=== PATIENT | male | born 1935 | race Caucasian/White ===

== ENCOUNTER 2018-03-11 16:26 | Inpatient (IN) | payer MEDICARE ==
[~2018-03-11] VITALS: Ht 180.3 cm; Wt 83.0 kg
[~2018-03-11 16:26] MED LIST: ASA81 MG PO; COUMADIN3 MG PO; LOVENOX60 MG/0.6 SC; PLAVIX75 MG PO; PRAVASTATIN SOD40 MG PO; Z.0.ASPIRIN CHEW81 M; Z.0.CORDARONE200 MG PO; Z.0.LASIX40 MG PO; Z.0.METOPROLOL TART5 PO; Z.0.PRINIVIL5 MG PO; Z.0.WARFARIN SODIUM5 PO; Z.0.XARELTO20 MG
[2018-03-11 16:50] VITALS: BP 119/81
--- NOTE | 2018-03-11 17:53 | Diagnostic Imaging Report ---
EXAMINATION: CHEST SINGLE (PORTABLE) INDICATION: Congestive heart failure. Shortness of breath. COMPARISON: None FINDINGS: TUBES and LINES: None. LUNGS: Left lower and lateral lung opacity could be due to a combination of pneumonia, atelectasis and pleural effusion. PLEURA: No pneumothorax. HEART AND MEDIASTINUM: Prominent heart size with pulmonary vascular congestion. BONES AND SOFT TISSUES: No acute osseous lesion. Soft tissues are unremarkable. UPPER ABDOMEN: No free air under the diaphragm. IMPRESSION: Left lower and lateral lung opacity could be due to a combination of pneumonia, atelectasis and pleural effusion. Prominent heart size with pulmonary vascular congestion. Signed by: Dr. Srikanth Balderrama M.D. on 03/11/2018 5:49 PM
[2018-03-11 18:02] LABS: BASOPHILS % 0.6 % (0.0-1.0); EOSINOPHILS # (AUTO) 0.1 (0.0-0.4); EOSINOPHILS % 0.9 % (0.0-6.0); HEMATOCRIT 27.2 % (38.2-49.6); HEMOGLOBIN 7.5 g/dL (14.0-18.0); LYMPHOCYTES # (AUTO) 1.1 (1.0-3.2); LYMPHOCYTES % 15.4 % (18.0-39.1); MEAN CORPUSCULAR HEMOGLOBIN 16.7 pg (28-32); MEAN CORPUSCULAR HGB CONC 27.6 g/dL (31-35); MEAN CORPUSCULAR VOLUME 60.6 fL (81-99); MONOCYTES # (AUTO) 0.6 (0.2-0.8); MONOCYTES % 9.1 % (4.4-11.3); NEUTROPHILS % 73.4 % (38.7-80.0); PLATELET COUNT 264 x10e3/uL (140-360); RED BLOOD COUNT 4.49 x10e6/uL (4.3-5.7); RED CELL DISTRIBUTION WIDTH 21.7 % (11.7-14.4)
[2018-03-11] MEDS ORDERED: ASPIRIN81 MG PO (18:06)
[2018-03-11 18:08] LABS: BILIRUBIN,URINE NEGATIVE (NEGATIVE); CLARITY,URINE CLEAR (CLEAR); COLOR,URINE YELLOW (YELLOW); KETONES,URINE NEGATIVE (NEGATIVE); LEUKOCYTE ESTERASE ,URINE NEGATIVE (NEGATIVE); NITRITE,URINE NEGATIVE (NEGATIVE); PROTEIN,URINE DIPSTICK TRACE (NEGATIVE); URINE UROBILINOGEN 0.2 mg/dL (0.2 - 1)
[2018-03-11 18:20] LABS: BACTERIA,URINE FEW /HPF
[2018-03-11 18:20] LABS: INR 3.31; PROTHROMBIN TIME 35.9 seconds (11.9-14.5)
[2018-03-11 18:23] LABS: ALBUMIN 3.7 g/dL (3.5-5.0); ALBUMIN/GLOBULIN RATIO 1.3 (0.8-2.0); ANION GAP 16.2 mmol/L (8-16); CALCIUM 8.5 mg/dL (8.4-10.2); CREATININE, SERUM 1.29 mg/dL (0.72-1.25); POTASSIUM 4.2 mmol/L (3.5-5.1)
[2018-03-11 18:44] LABS: CREATINE KINASE MB 1.3 ng/mL (0-5.0); FREE T4 (FREE THYROXINE) 0.88 ng/dL (0.9-1.8); THYROID STIMULATING HORMONE 4.931 uIU/mL (0.350-4.940)
[2018-03-11] MEDS ORDERED: SODIUM CHLORIDE 0.9% 250ML 250 ML IV ONE (19:30)
[2018-03-11 20:00] VITALS: BP 116/75
[2018-03-12] VITALS (7 sets, daily range): BP systolic 103–134; BP diastolic 62–97
[2018-03-12] MEDS: FUROSEMIDE INJ 10 MG/ML 2 ML VIAL IV PRN ×2 (01:35→05:15)
[2018-03-12] MEDS ORDERED: SODIUM CHLORIDE 0.9% 250ML 250 ML ONE ×2 (01:45→12:17)
[2018-03-12] MEDS ORDERED: ASPIRIN 81 MG CHEW TAB PO SCH (09:00)
[2018-03-12] MEDS ORDERED: CLOPIDOGREL BISULFATE 75 MG TAB PO SCH (09:00)
[2018-03-12] MEDS: FUROSEMIDE 40 MG TAB PO SCH (09:06)
[2018-03-12] MEDS: METOPROLOL TARTRATE 50 MG TAB PO SCH ×2 (09:06→17:53)
[2018-03-12 10:00] LABS: BASOPHILS # (AUTO) 0.1 (0.0-0.1); BASOPHILS % 0.6 % (0.0-1.0); EOSINOPHILS # (AUTO) 0.1 (0.0-0.4); EOSINOPHILS % 1.4 % (0.0-6.0); HEMATOCRIT 33.4 % (38.2-49.6); HEMOGLOBIN 9.6 g/dL (14.0-18.0); LYMPHOCYTES # (AUTO) 1.2 (1.0-3.2); LYMPHOCYTES % 14.6 % (18.0-39.1); MEAN CORPUSCULAR HEMOGLOBIN 18.6 pg (28-32); MEAN CORPUSCULAR HGB CONC 28.7 g/dL (31-35); MEAN CORPUSCULAR VOLUME 64.6 fL (81-99); MONOCYTES # (AUTO) 0.7 (0.2-0.8); MONOCYTES % 8.3 % (4.4-11.3); NEUTROPHILS # (AUTO) 5.9 (2.1-6.9); NEUTROPHILS % 74.6 % (38.7-80.0); PLATELET COUNT 235 x10e3/uL (140-360); RED BLOOD COUNT 5.17 x10e6/uL (4.3-5.7); RED CELL DISTRIBUTION WIDTH 24.7 % (11.7-14.4)
[2018-03-12 10:19] LABS: ANION GAP 11.4 mmol/L (8-16); CALCIUM 8.1 mg/dL (8.4-10.2); CREATININE, SERUM 1.21 mg/dL (0.72-1.25); MAGNESIUM 1.9 MG/DL (1.3-2.1); POTASSIUM 3.4 mmol/L (3.5-5.1)
[2018-03-12] MEDS ORDERED: POTASSIUM CHLORIDE 20 MEQ TAB CR PO NR (12:00)
[2018-03-12 12:31] LABS: HYPOCHROMASIA MODERATE; PLATELET ESTIMATE ADEQUATE; PLATELET MORPHOLOGY COMMENT NORMAL
[2018-03-12 12:32] LABS: ANISOCYTOSIS MODERATE; TARGET CELLS FEW
[2018-03-12] MEDS: AZITHROMYCIN 250MG/NS 100 ML 100 ML IV SCH (12:42)
[2018-03-12] MEDS: CEFTRIAXONE SOD 1 GM VIAL IV SCH (12:42)
--- NOTE | 2018-03-12 16:26 | Consultation ---
DATE OF CONSULTATION: March 12, 2018 CARDIOLOGY CONSULTATION REASON FOR CONSULTATION: Heart failure. HISTORY OF PRESENT ILLNESS: This is an 83-year-old man who follows with my colleague, Dr. Khan, who has a history of former tobacco use, atrial fibrillation on anticoagulation, peripheral arterial disease, status post prior intervention, and hypertension who presented to the outpatient setting and reported fatigue, shortness of breath, and feeling unwell. Labs done indicated significant anemia, and he was transferred to the emergency department for admission. Upon arrival to the emergency department, he was hemodynamically stable. He was initiated on antibiotics for possible pneumonia, diuretics and received a blood transfusion. The patient does note that with wiping after a bowel movement he has noted blood on the toilet paper. He denies any chest pain currently. His shortness of breath is still present, however, has improved. REVIEW OF SYSTEMS: A 12-point review of systems was conducted and is negative other than as stated above in the HPI. PAST MEDICAL HISTORY: Hypertension, atrial fibrillation, anemia, former tobacco use, peripheral arterial disease. PAST SURGICAL HISTORY: Cholecystectomy, tonsillectomy, stomach surgery. PAST FAMILY HISTORY: No premature coronary artery disease or sudden cardiac . SOCIAL HISTORY: No current tobacco use. Former smoker. Denies any current illicit use or alcohol use. ALLERGIES: NO KNOWN DRUG ALLERGIES. MEDICATIONS: See medication reconciliation form. PHYSICAL EXAMINATION VITAL SIGNS: Temperature 96.2, heart rate 80, respirations 18 and blood pressure 118/97, oxygen saturation is 96% on 2 liters nasal cannula. GENERAL: He is an elderly male lying comfortably in bed. HEAD: Normocephalic, atraumatic. EYES: The extraocular muscles are intact. Conjunctiva is clear. NECK: No JVD. There is a bruit. CARDIOVASCULAR: Irregularly irregular, normal rates. Mild systolic murmur heard best at the left lower sternal border. LUNGS: Decreased breath sounds with scattered wheezes and rhonchi. ABDOMEN: Soft, nontender. EXTREMITIES: No edema. NEUROLOGIC: No focal deficits noted. PSYCHIATRIC: Normal mood and affect. LABORATORY DATA: Reviewed and notable for a hemoglobin of 7.5, which is now 9.6 after transfusion. His creatinine is 1.21. Sodium is 132, potassium 3.4, troponin is 0.019. Creatinine kinase is 365. CK-MB is 1.3. A 2D echocardiogram showed normal left ventricular size and overall preserved left ventricular function with an estimated ejection fraction of 55%. TELEMETRY: Revealed atrial fibrillation with controlled ventricular response. IMPRESSION AND RECOMMENDATIONS: 1. Abdwh-qe-uuaicxp diastolic heart failure. The patient does appear mildly volume overloaded and with shortness of breath. Continue Lasix for diuresis. A 2D echocardiogram showed overall normal left ventricular systolic function. 2. Acute anemia. This is likely related to gastrointestinal losses. The patient received blood transfusion. Defer other treatment modalities or diagnostic testing to primary and gastroenterology teams. 3. Atrial fibrillation. The patient has controlled ventricular response on metoprolol tartrate 50 mg b.i.d. His INR is 3.31. Continue to hold warfarin as this is supratherapeutic, and he is likely having gastrointestinal bleed. Thank you for the consultation. Will follow along with you. Job#: [id number]
[2018-03-12] MEDS ORDERED: WARFARIN SOD 3 MG TAB PO SCH (17:00)
[2018-03-12] MEDS ORDERED: NON-FORMULARY MEDICATION (Pravastatin Sodium 40 MG) PO SCH (21:00)
[2018-03-12] MEDS: PRAVASTATIN 20 MG TAB PO SCH (21:51)
[2018-03-13] VITALS (8 sets, daily range): BP systolic 106–131; BP diastolic 63–78
[2018-03-13 05:59] LABS: BASOPHILS # (AUTO) 0.1 (0.0-0.1); BASOPHILS % 0.7 % (0.0-1.0); EOSINOPHILS # (AUTO) 0.3 (0.0-0.4); EOSINOPHILS % 3.8 % (0.0-6.0); HEMATOCRIT 32.4 % (38.2-49.6); HEMOGLOBIN 9.3 g/dL (14.0-18.0); LYMPHOCYTES # (AUTO) 1.4 (1.0-3.2); LYMPHOCYTES % 15.8 % (18.0-39.1); MEAN CORPUSCULAR HEMOGLOBIN 18.6 pg (28-32); MEAN CORPUSCULAR HGB CONC 28.7 g/dL (31-35); MEAN CORPUSCULAR VOLUME 64.7 fL (81-99); MONOCYTES # (AUTO) 0.9 (0.2-0.8); MONOCYTES % 10.3 % (4.4-11.3); NEUTROPHILS % 69.1 % (38.7-80.0); PLATELET COUNT 221 x10e3/uL (140-360); RED BLOOD COUNT 5.01 x10e6/uL (4.3-5.7)
[2018-03-13 06:19] LABS: ANION GAP 12.6 mmol/L (8-16); BLOOD UREA NITROGEN 22 mg/dL (7-26); BUN/CREATININE RATIO 19 (6-25); CALCIUM 8.9 mg/dL (8.4-10.2); CARBON DIOXIDE 32 mmol/L (22-29); CHLORIDE 98 mmol/L (98-107); CREATININE, SERUM 1.15 mg/dL (0.72-1.25); EST GLOMERULAR FILTRATION RATE > 60 ML/MIN (60-); GLUCOSE 98 mg/dL (74-118); POTASSIUM 3.6 mmol/L (3.5-5.1); SODIUM 139 mmol/L (136-145)
[2018-03-13 06:22] LABS: INR 2.11; PROTHROMBIN TIME 25.3 seconds (11.9-14.5)
[2018-03-13 07:13] LABS: LARGE PLATELETS FEW; PLATELET ESTIMATE ADEQUATE
[2018-03-13 07:14] LABS: ANISOCYTOSIS SLIGHT; HYPOCHROMASIA MODERATE; SCHISTOCYTES FEW; TARGET CELLS FEW
[2018-03-13 07:17] LABS: FERRITIN 16.09 ng/mL (21.81-274.66)
[2018-03-13 07:34] LABS: FOLATE 10.7 ng/mL (7.0-15.4)
[2018-03-13 07:51] LABS: RBC MORPHOLOGY COMMENT NORMAL
[2018-03-13] MEDS: FUROSEMIDE 40 MG TAB PO SCH (09:28)
[2018-03-13] MEDS: METOPROLOL TARTRATE 50 MG TAB PO SCH ×2 (09:29→17:52)
[2018-03-13] MEDS: CEFTRIAXONE SOD 1 GM VIAL IV SCH (13:00)
[2018-03-13] MEDS: AZITHROMYCIN 250MG/NS 100 ML 100 ML IV SCH (14:06)
--- NOTE | 2018-03-13 19:20 | Progress Note ---
DATE: CARDIOLOGY PROGRESS NOTE SUBJECTIVE: Patient feels better. No further GI bleeding. No chest pain or shortness of breath. Gastroenterology is yet to evaluate the patient. OBJECTIVE VITAL SIGNS: Temperature is 97.0, heart rate is 103, respirations are 20, blood pressure is 111/71, oxygen saturation is 96% on 2 liters nasal cannula. GENERAL: He is a normal-appearing man, lying comfortably in bed, in no apparent distress. HEAD: Normocephalic, atraumatic. NECK: No JVD. There is bruit over the right carotid area. CARDIOVASCULAR: Irregularly irregular. Mild systolic murmur heard best at the left lower sternal border. LUNGS: Diminished breath sounds at bilateral bases with scattered wheezes and rhonchi. ABDOMEN: Soft, nontender, nondistended. EXTREMITIES: No edema. NEUROLOGIC: No focal deficits noted. LABORATORY DATA: Reviewed. Hemoglobin is increased to 9.3. Creatinine is 1.15. TELEMETRY: Monitoring revealed atrial fibrillation with controlled ventricular response. IMPRESSION/RECOMMENDATIONS 1. Ebhda-cm-ubwrgeu diastolic heart failure. A 2D echocardiogram showed normal left ventricular systolic function. Continue Lasix for diuresis. There is no evidence of acute coronary syndrome. He is asymptomatic and is feeling much better. 2. Atrial fibrillation. The patient has mostly controlled ventricular rates. Can increase metoprolol as tolerated. No anticoagulation at this point in time giving gastrointestinal bleed. 3. Gastrointestinal bleed. Treatment provided per primary team. The hemoglobin is stable. Please consult gastroenterology for further workup. Job#: [id number] BELÉN
[2018-03-13] MEDS: PRAVASTATIN 20 MG TAB PO SCH (20:39)
[2018-03-14] VITALS (8 sets, daily range): BP systolic 109–128; BP diastolic 55–72
[2018-03-14 06:14] LABS: INR 1.68; PROTHROMBIN TIME 21.1 seconds (11.9-14.5)
[2018-03-14] MEDS: FUROSEMIDE 40 MG TAB PO SCH (09:12)
[2018-03-14] MEDS: IRON SUCROSE 100 MG in SODIUM CHLORIDE 0.9% 100 ML 100 ML IV SCH (09:12)
[2018-03-14] MEDS: METOPROLOL TARTRATE 50 MG TAB PO SCH ×2 (09:12→17:22)
[2018-03-14] MEDS: AZITHROMYCIN 250MG/NS 100 ML 100 ML IV SCH (12:51)
[2018-03-14] MEDS: CEFTRIAXONE SOD 1 GM VIAL IV SCH (12:51)
--- NOTE | 2018-03-14 15:48 | Progress Note ---
DATE: March 14, 2018 CARDIOLOGY PROGRESS NOTE SUBJECTIVE: Mr. Carvalho feels much better. He denies any chest pain or shortness of breath. He is able to lie flat in bed. OBJECTIVE VITAL SIGNS: Afebrile. Heart rate 79, blood pressure 111/55. CARDIOVASCULAR: Regular rhythm. Systolic murmur. LUNGS: Clear to auscultation bilaterally. ABDOMEN: Soft. LABS: Serum creatinine is normal. TELEMETRY: Shows atrial fibrillation. ASSESSMENT 1. Alvyh-ok-pgkwkqy diastolic heart failure. 2. Atrial fibrillation. 3. Gastrointestinal bleeding. RECOMMENDATIONS: Current medical regimen is optimal and should be continued. LV function is normal. Recommend endoscopy to evaluate GI cause of bleeding. Job#: [id number] LPA
[2018-03-14 16:29] LABS: BASOPHILS % 0.6 % (0.0-1.0); EOSINOPHILS # (AUTO) 0.3 (0.0-0.4); EOSINOPHILS % 4.5 % (0.0-6.0); HEMATOCRIT 32.2 % (38.2-49.6); LYMPHOCYTES % 13.9 % (18.0-39.1); MEAN CORPUSCULAR HEMOGLOBIN 18.5 pg (28-32); MEAN CORPUSCULAR VOLUME 66.3 fL (81-99); MONOCYTES # (AUTO) 0.9 (0.2-0.8); MONOCYTES % 12.5 % (4.4-11.3); NEUTROPHILS # (AUTO) 4.9 (2.1-6.9); NEUTROPHILS % 68.1 % (38.7-80.0); PLATELET COUNT 224 x10e3/uL (140-360); RED BLOOD COUNT 4.86 x10e6/uL (4.3-5.7); RED CELL DISTRIBUTION WIDTH 25.8 % (11.7-14.4)
--- NOTE | 2018-03-14 16:42 | Progress Note ---
DATE: INTERNAL MEDICINE PROGRESS NOTE ADDENDUM The patient is getting Zithromax 250 mg IV once a day, iron IV status post blood transfusion, furosemide 60 mg every morning, metoprolol 50 mg twice a day, Pravastatin 40 mg daily, ceftriaxone 1 gram IV once a day. The patient is going have an upper endoscopy once the INR is lower. Job#: [id number] LPA
--- NOTE | 2018-03-14 16:54 | Progress Note ---
DATE: INTERNAL MEDICINE PROGRESS NOTE SUBJECTIVE: Patient is doing well. PHYSICAL EXAM VITAL SIGNS: Blood pressure 111/55, temperature 96.6, heart rate 79 per minute, respiratory rate 20 per minute, and oxygen saturation 98%. HEART: Showed irregularly irregular heart rate. Normal S1 S2 sounds. LUNGS: Clear bilaterally. ABDOMEN: Soft. LABS: We had BMP; sodium 139, potassium 3.6, chloride 98, CO2 32, BUN 22, creatinine 1.15, glucose 98. On the CBC, white blood count 8.65, hemoglobin 9.3, hematocrit 32.4, platelet count 221, 000. PT 21.1, INR 1.68. AST 16, ALT 11, total bilirubin 0.9. Alkaline phosphatase 69. FINAL IMPRESSION 1. Iron deficiency anemia. 2. Lower pneumonia. 3. Chronic atrial fibrillation. 4. Acute anemia secondary to gastric bleed possible. 5. Chronic renal failure, type 2. 6. Possible gastrointestinal bleed. 7. Hypertension with chronic renal failure. Job#: [id number] ROVERTO
[2018-03-14 17:48] LABS: HYPOCHROMASIA MODERATE; MICROCYTOSIS MODERATE; POLYCHROMASIA FEW
[2018-03-14 17:49] LABS: ANISOCYTOSIS MODERATE; ELLIPTOCYTE, RBC SLIGHT; OVALOCYTES FEW; PLATELET ESTIMATE ADEQUATE; PLATELET MORPHOLOGY COMMENT NORMAL; RBC MORPHOLOGY COMMENT ABNORMAL; SCHISTOCYTES RARE
[2018-03-14] MEDS: PRAVASTATIN 20 MG TAB PO SCH (20:45)
[2018-03-15] VITALS (7 sets, daily range): BP systolic 111–138; BP diastolic 55–65
[2018-03-15] MEDS: IRON SUCROSE 100 MG in SODIUM CHLORIDE 0.9% 100 ML 100 ML IV SCH (04:37)
[2018-03-15] MEDS: METOPROLOL TARTRATE 50 MG TAB PO SCH ×2 (09:17→17:44)
[2018-03-15] MEDS: FUROSEMIDE 40 MG TAB PO SCH (09:17)
--- NOTE | 2018-03-15 11:46 | Progress Note ---
DATE: March 15, 2018 CARDIOLOGY PROGRESS NOTE SUBJECTIVE: Mr. Carvalho is asymptomatic. He is awaiting his endoscopy. PHYSICAL EXAMINATION VITAL SIGNS: Afebrile, heart rate 86, blood pressure 138/64, O2 sat is 97%. CARDIOVASCULAR: Regular rhythm. S3 gallop. LUNGS: Clear to auscultation bilaterally. LABS: Hemoglobin is stable at 9. Serum creatinine is normal. ASSESSMENT 1. Acute heart failure with gastrointestinal bleeding. 2. Atrial fibrillation. RECOMMENDATIONS: The patient is cleared for endoscopy from the cardiac standpoint. We do require him to re-initiate his anticoagulation with consideration for Watchman procedure in the future as an outpatient. Job#: [id number] SANDRA
[2018-03-15] MEDS: CEFTRIAXONE SOD 1 GM VIAL IV SCH (12:00)
[2018-03-15] MEDS: AZITHROMYCIN 250MG/NS 100 ML 100 ML IV SCH (12:30)
--- NOTE | 2018-03-15 14:01 | Progress Note ---
DATE: INTERNAL MEDICINE PROGRESS NOTE SUBJECTIVE: Patient is doing well. OBJECTIVE VITAL SIGNS: Blood pressure 116/59, temperature 95.6, heart rate 90 per minute, respiratory rate 18 per minute, oxygen saturation 96%. HEART: Shows irregularly irregular heart rate. Normal S1, S2 sounds. LUNGS: Clear bilaterally. ABDOMEN: Soft. On the BMP; sodium 139, potassium 3.6, chloride 98, CO2 32, BUN 22, creatinine 1.15, glucose 98. On CBC, white blood count 7.12, hemoglobin 9.0, hematocrit 32.2, platelet count 224,000. PT 21.1, INR 1.68. AST 16, ALT 11, total bilirubin 0.9, alkaline phosphatase 69. FINAL IMPRESSION 1. Lobar pneumonia. 2. Chronic atrial fibrillation. 3. Acute anemia. 4. Chronic renal insufficiency, stage 2 to 3. 5. Gastric bleed. 6. Hypertension with chronic renal failure. PLAN OF TREATMENT: Possible endoscopy tomorrow pending on the PT and INR reports. Continue Zithromax 250 mg daily. He received iron IV. Continue with furosemide 60 mg daily, metoprolol 50 mg twice a day, pravastatin 40 mg daily, ceftriaxone 1 g IV once a day. Job#: [id number] SUB
[2018-03-15] MEDS: PRAVASTATIN 20 MG TAB PO SCH (19:52)
[2018-03-16] VITALS (8 sets, daily range): BP systolic 105–137; BP diastolic 60–91
[2018-03-16] MEDS: IRON SUCROSE 100 MG in SODIUM CHLORIDE 0.9% 100 ML 100 ML IV SCH (04:20)
[2018-03-16 05:42] LABS: BASOPHILS # (AUTO) 0.1 (0.0-0.1); BASOPHILS % 0.9 % (0.0-1.0); EOSINOPHILS # (AUTO) 0.5 (0.0-0.4); EOSINOPHILS % 6.9 % (0.0-6.0); HEMATOCRIT 32.6 % (38.2-49.6); LYMPHOCYTES # (AUTO) 1.2 (1.0-3.2); LYMPHOCYTES % 17.7 % (18.0-39.1); MEAN CORPUSCULAR HEMOGLOBIN 18.4 pg (28-32); MEAN CORPUSCULAR HGB CONC 27.6 g/dL (31-35); MEAN CORPUSCULAR VOLUME 66.8 fL (81-99); MONOCYTES # (AUTO) 0.7 (0.2-0.8); MONOCYTES % 9.9 % (4.4-11.3); NEUTROPHILS # (AUTO) 4.2 (2.1-6.9); NEUTROPHILS % 64.3 % (38.7-80.0); PLATELET COUNT 204 x10e3/uL (140-360); RED BLOOD COUNT 4.88 x10e6/uL (4.3-5.7); RED CELL DISTRIBUTION WIDTH 26.7 % (11.7-14.4)
[2018-03-16 06:24] LABS: INR 1.16; PROTHROMBIN TIME 15.8 seconds (11.9-14.5)
[2018-03-16 07:53] LABS: ANISOCYTOSIS MODERATE; EOSINOPHILS % (MANUAL) 9 % (0-7); HYPOCHROMASIA MODERATE; LYMPHOCYTES % (MANUAL) 24 % (19-48); MONOCYTES % (MANUAL) 9 % (3.4-9.0); NEUTROPHILS % (MANUAL) 57 % (40-74); POIKILOCYTOSIS SLIGHT
[2018-03-16 07:54] LABS: PLATELET ESTIMATE ADEQUATE; PLATELET MORPHOLOGY COMMENT NORMAL; RBC MORPHOLOGY COMMENT ABNORMAL
[2018-03-16] MEDS: METOPROLOL TARTRATE 50 MG TAB PO SCH ×2 (09:00→17:13)
[2018-03-16] MEDS ORDERED: PANTOPRAZOLE 40 MG 10ML VIAL IV STA (12:12)
[2018-03-16] MEDS: PANTOPRAZOLE 40 MG 10ML VIAL IV SCH (12:15)
--- NOTE | 2018-03-16 12:54 | Operative Report ---
DATE OF PROCEDURE: March 16, 2018 REFERRING PHYSICIAN: Dr. Max Bal. PROCEDURE PERFORMED: Esophagogastroduodenoscopy with injection therapy, fulguration and hemoclipping of a bleeding spot just proximal to a Billroth II anastomosis. INDICATIONS FOR ESOPHAGOGASTRODUODENOSCOPY: Iron deficiency anemia. MEDICATION: Patient was done under MAC. Please see anesthesiologist's note. PROCEDURE: With the patient in the left lateral decubitus position, the flexible fiberoptic Olympus gastroscope was introduced into the esophagus under direct visualization without any difficulty. The esophagus appeared to be within normal limits. The scope was then advanced with ease into the stomach, traversing a small hiatal hernia. There were some coffee-ground stains noted in the stomach. The patient appears to have had a Billroth II anastomosis that appeared intact. There was an actively bleeding spot, possibly an AVM, just proximal to the anastomosis, and that was injected with 1:10,000 epinephrine, fulgurated with a size 10-Maltese Gold Probe and hemoclipped times 2 with good hemostasis. The anastomosis was traversed with ease, and both loops were patent. The scope was then withdrawn back into the stomach and retroflexed, and the mucosa overlying the fundus as well as the cardia appeared to be within normal limits. The scope was then straightened out. It was subsequently withdrawn. Patient tolerated the procedure well. IMPRESSION: 1. Normal esophagus. 2. Small hiatal hernia. 3. Status post Billroth II with intact anastomosis and patent efferent and afferent loops. 4. Actively bleeding spot, possibly an arteriovenous malformation, just proximal to the anastomosis, and that was injected with 1:10,000 epinephrine, fulgurated with size 10-Maltese Gold Probe and hemoclipped times 2 with good hemostasis. Patient tolerated the procedure well. PLAN: 1. Follow H&H. 2. Initiate PPI therapy. 3. Start Carafate 1 gram p.o. a.c. t.i.d. and nightly. Job#: [id number] EV cc:MD SAMMIE BARNETT D.O.
[2018-03-16] MEDS: FUROSEMIDE 40 MG TAB PO SCH (12:59)
[2018-03-16] MEDS: CEFTRIAXONE SOD 1 GM VIAL IV SCH (12:59)
[2018-03-16] MEDS: AZITHROMYCIN 250MG/NS 100 ML 100 ML IV SCH (13:00)
--- NOTE | 2018-03-16 15:33 | Progress Note ---
DATE: CARDIOLOGY PROGRESS NOTE SUBJECTIVE: The patient feels overall well in preparation for endoscopy. No other symptoms or events. OBJECTIVE VITAL SIGNS: Temperature 96.8, heart rate 99, respirations 20, blood pressure 121/91, oxygen saturation 96% on 2 L nasal cannula. GENERAL: This is a well-appearing, elderly man sleeping comfortably. HEAD: Normocephalic. CARDIOVASCULAR: Regular rhythm. Normal S1 and S2. No murmurs. LUNGS: Clear to auscultation. ABDOMEN: Soft, nontender and nondistended. LABORATORY DATA: Reviewed and shows creatinine 9, creatinine 1.15. ASSESSMENT 1. Acute diastolic heart failure. 2. Gastrointestinal bleeding. 3. Atrial fibrillation. RECOMMENDATIONS: The patient is hemodynamically stable and currently asymptomatic. Continue current cardiovascular medications. Endoscopy per gastroenterology today. Will continue to monitor closely. Will reinitiate anticoagulation and possible consideration for Watchman procedure as an outpatient. Job#: [id number]
[2018-03-16] MEDS: SUCRALFATE 1 GM TAB PO SCH ×2 (17:13→20:00)
[2018-03-16] MEDS ORDERED: EPINEPHRINE HCL INJ 1 MG/ML AMP ONE (19:18)
[2018-03-16] MEDS ORDERED: PROPOFOL IV EMULSION 10 MG/ML 50 ML VIAL ONE (19:18)
[2018-03-16] MEDS ORDERED: EPHEDRINE SULFATE INJ 50 MG/10 ML SYR ONE (19:18)
[2018-03-16] MEDS: PRAVASTATIN 20 MG TAB PO SCH (20:00)
[2018-03-17] VITALS: BP 111/69
[2018-03-17] MEDS: PANTOPRAZOLE 40 MG 10ML VIAL IV SCH ×2 (00:15→13:43)
[2018-03-17 04:00] VITALS: BP 120/72
[2018-03-17] MEDS: IRON SUCROSE 100 MG in SODIUM CHLORIDE 0.9% 100 ML 100 ML IV SCH (05:15)
[2018-03-17 05:37] LABS: BASOPHILS # (AUTO) 0.1 (0.0-0.1); BASOPHILS % 0.8 % (0.0-1.0); EOSINOPHILS # (AUTO) 0.5 (0.0-0.4); EOSINOPHILS % 6.1 % (0.0-6.0); HEMATOCRIT 34.5 % (38.2-49.6); HEMOGLOBIN 9.5 g/dL (14.0-18.0); LYMPHOCYTES # (AUTO) 1.2 (1.0-3.2); LYMPHOCYTES % 16.9 % (18.0-39.1); MEAN CORPUSCULAR HEMOGLOBIN 18.8 pg (28-32); MEAN CORPUSCULAR HGB CONC 27.5 g/dL (31-35); MEAN CORPUSCULAR VOLUME 68.2 fL (81-99); MONOCYTES # (AUTO) 0.7 (0.2-0.8); MONOCYTES % 9.7 % (4.4-11.3); NEUTROPHILS # (AUTO) 4.8 (2.1-6.9); NEUTROPHILS % 65.8 % (38.7-80.0); PLATELET COUNT 207 x10e3/uL (140-360); RED BLOOD COUNT 5.06 x10e6/uL (4.3-5.7); RED CELL DISTRIBUTION WIDTH 27.6 % (11.7-14.4)
[2018-03-17 06:00] LABS: ANION GAP 8.4 mmol/L (8-16); CALCIUM 8.6 mg/dL (8.4-10.2); CREATININE, SERUM 1.18 mg/dL (0.72-1.25); POTASSIUM 4.4 mmol/L (3.5-5.1)
[2018-03-17] MEDS: SUCRALFATE 1 GM TAB PO SCH ×4 (06:38→20:42)
[2018-03-17 08:16] VITALS: BP 119/76
[2018-03-17 08:35] VITALS: BP 119/76
[2018-03-17] MEDS: METOPROLOL TARTRATE 50 MG TAB PO SCH ×2 (08:46→17:59)
[2018-03-17] MEDS: FUROSEMIDE 40 MG TAB PO SCH (08:46)
[2018-03-17 09:28] LABS: PLATELET ESTIMATE ADEQUATE
[2018-03-17 09:29] LABS: ACANTHOCYTES FEW; HYPOCHROMASIA SLIGHT; POIKILOCYTOSIS SLIGHT; POLYCHROMASIA FEW; RBC MORPHOLOGY COMMENT NORMAL; SCHISTOCYTES FEW
--- NOTE | 2018-03-17 11:41 | Diagnostic Imaging Report ---
EXAM: CHEST 2 VIEWS, PA and lateral DATE: 03/17/2018 11:00 AM INDICATION: CHF, cough and congestion COMPARISON: 03/11/2018 FINDINGS: LINES/TUBES: None LUNGS: Mild pulmonary vascular congestion. Left lower lobe obscured by the large pleural effusion. PLEURA: Large left pleural effusion. There is also pleural calcification and plaques. The effusion might be loculated. CT scan of the chest with IV contrast would be of benefit to evaluate the effusion and possible loculation. HEART AND MEDIASTINUM: Heart is enlarged. There is calcification in the aorta. BONES AND SOFT TISSUES: No acute findings. IMPRESSION: 1. Cardiomegaly with pulmonary vascular congestion. 2. Large left pleural effusion with pleural calcification and plaques. Signed by: Dr. Gold Ortega DO on 03/17/2018 11:37 AM
[2018-03-17 12:02] VITALS: BP 124/81
[2018-03-17] MEDS ORDERED: SODIUM CHLORIDE 0.9% 250ML 250 ML ONE (13:17)
[2018-03-17] MEDS: CEFTRIAXONE SOD 1 GM VIAL IV SCH (13:43)
[2018-03-17] MEDS: AZITHROMYCIN 250MG/NS 100 ML 100 ML IV SCH (13:43)
--- NOTE | 2018-03-17 16:47 | Diagnostic Imaging Report ---
PROCEDURE: ULTRASOUND GUIDED THORACENTESIS COMPARISON: None. INDICATIONS:LEFT PLEURAL EFFUSION FINDINGS: After informed consent was obtained, the patient was placed in the sitting position and preliminary ultrasound of the posterior chest identified a safe route into the left lateral pleural lesion. The overlying skin was prepped and draped in usual sterile fashion. Lidocaine 1% was used for local anesthesia. Under ultrasound guidance, a centesis needle was advanced into the pleural lesion but no fluid was aspirated. Patient was then transferred to the CT scanner for a CT scan of the chest for additional evaluation. CONCLUSION: The left pleural lesion with calcification is not sufficiently liquid enough to obtain fluid. Gold Ortega D.O. Dictated by: Gold Ortega D.O. on 03/17/2018 at 16:56 Electronically approved by: Gold Ortega D.O. on 03/17/2018 at 16:56
--- NOTE | 2018-03-17 17:14 | Diagnostic Imaging Report ---
EXAMINATION: CT scan of the chest without contrast. TECHNIQUE: Spiral CT images of the chest were performed from the lung apices to the level of the adrenal glands without IV or oral contrast material. Coronal and sagittal reformatted images were obtained. Low-dose technique was utilized. DLP: 595.89 mGy-cm COMPARISON: PA and lateral chest dated 03/17/2018 and 07/10/2015. CLINICAL HISTORY: Left pleural lesion on chest x-ray suggestive of loculated fluid or a mass. DISCUSSION: LINES/TUBES: None. LUNGS AND AIRWAYS: Diffuse emphysematous changes are present. No pulmonary nodules, masses or consolidation. The airways are normal, without endobronchial lesions. There is an azygos lobe present. PLEURA: There is a left lateral pleural-based soft tissue mass with rim-like calcification. More stippled calcification is noted inferiorly. There is no fluid noted with the mass. Differential for this includes mesothelioma versus old chronic partially calcified hematoma or sequela of infection. Small right pleural effusion is noted. In comparison to the oldest chest x-ray of 2016 there is little interval change with the current chest x-ray (this fact tends to favor a benign process). HEART AND MEDIASTINUM: The thyroid gland is normal. The heart and pericardium are within normal limits. Aortic and coronary vascular calcification is present. The main pulmonary artery measures 3.7 cm. LYMPH NODES: There is no mediastinal, hilar or axillary lymphadenopathy. ABDOMEN: Left kidney is small and irregular but only partially visualized. Only the superior aspect of the right kidney is seen. BONES AND SOFT TISSUES: Degenerative changes of the spine. No obvious bony erosion or destruction associated with the left pleural-based mass. IMPRESSION: Left lateral pleural-based mass with rim-like calcification around the periphery and stippled calcification at the base. Signed by: Dr. Gold Ortega DO on 03/17/2018 5:11 PM
--- NOTE | 2018-03-17 19:13 | Progress Note ---
DATE: CARDIOLOGY PROGRESS NOTE SUBJECTIVE: Patient underwent endoscopy yesterday, was found to have an active bleeding area possibly due to an arteriovenous malformation and underwent successful treatment. The patient was found to have pleural effusion and underwent thoracentesis, however, no fluid was returned, which prompted a CT of the chest, which revealed a left pleural-based mass. He is overall feeling better. Denies any chest pain, shortness of breath, or palpitations. OBJECTIVE: VITAL SIGNS: 97.1 temperature, heart rate is 80, blood pressure is 122/71, oxygen saturation is 94% on 2 liters nasal cannula. GENERAL: He is a well-appearing, well-built elderly man lying comfortably in bed. HEENT: Head is normocephalic, atraumatic. CARDIOVASCULAR: Irregularly irregular. LUNGS: Diminished breath sounds. ABDOMEN: Soft, nontender. EXTREMITIES: No edema. Telemetry monitoring revealed atrial fibrillation with controlled ventricular response. LABORATORY DATA: Reviewed, notable for hemoglobin of 9.5, creatinine of 1.18. CT of the chest showed left pleural-based mass. IMPRESSION: 1. Atrial fibrillation. 2. Gastrointestinal bleeding. 3. Acute diastolic heart failure. 4. Pleural mass. RECOMMENDATIONS: The patient's hemoglobin has stabilized since treatment of his AVMs. Continue to monitor hemoglobins closely. Patient will eventually needed to be placed back on his anticoagulation, however, this is being held around the time of procedures. Patient has acceptable risk profile to undergo biopsy of this left pleural-based mass with an acceptable cardiovascular risk profile. Otherwise, he is hemodynamically stable. Continue all other current cardiovascular medications with Lasix and metoprolol. Job#: [id number]
[2018-03-17 20:00] VITALS: BP 95/52
[2018-03-17] MEDS: PRAVASTATIN 20 MG TAB PO SCH (20:43)
[2018-03-18] VITALS (7 sets, daily range): BP systolic 105–153; BP diastolic 55–99
[2018-03-18] MEDS: PANTOPRAZOLE 40 MG 10ML VIAL IV SCH ×2 (00:33→12:59)
[2018-03-18] MEDS: IRON SUCROSE 100 MG in SODIUM CHLORIDE 0.9% 100 ML 100 ML IV SCH (05:43)
[2018-03-18] MEDS: SUCRALFATE 1 GM TAB PO SCH ×3 (07:30→17:00)
[2018-03-18] MEDS ORDERED: LIDOCAINE HCL 1% LOCAL INJ 20 ML VIAL ONE (08:35)
[2018-03-18] MEDS: METOPROLOL TARTRATE 50 MG TAB PO SCH ×3 (09:00→17:38)
[2018-03-18] MEDS: FUROSEMIDE 40 MG TAB PO SCH (09:00)
[2018-03-18] MEDS ORDERED: MIDAZOLAM HCL 2 MG/2 ML VIAL ONE (10:49)
[2018-03-18] MEDS ORDERED: FENTANYL CITRATE/PF 100MCG/2 ML INJ ONE (10:49)
--- NOTE | 2018-03-18 10:53 | Progress Note ---
DATE: March 18, 2018 CARDIOLOGY PROGRESS NOTE SUBJECTIVE: Patient found sleeping comfortably. No active cardiac complaints. No further gastrointestinal bleed. OBJECTIVE VITAL SIGNS: Temperature 97.9, heart rate 75, respirations 18, blood pressure 153/68, oxygen saturation is 99% on 2 L nasal cannula. GENERAL: He is a well appearing elderly man sleeping comfortably. CARDIOVASCULAR: Irregularly irregular. Normal rate. LUNGS: Diminished breath sounds at bilateral bases. ABDOMEN: Soft and nontender. NEUROLOGIC: No focal deficits noted. LABORATORY DATA: Were reviewed. No current CBC on the chart. Telemetry monitoring revealed atrial fibrillation with controlled ventricular response. IMPRESSION 1. Atrial fibrillation. 2. Gastrointestinal bleed. 3. Acute diastolic heart failure. 4. Pleural mass. RECOMMENDATIONS: No CBC was performed today. However, his hemoglobin has been stable since endoscopy and intervention. Patient was unfortunately found to have a pleural mass, and is scheduled for biopsy. He is an acceptable cardiovascular risk for this procedure. Once all procedures have been completed, resume anticoagulation. Otherwise, he is stable from a cardiovascular standpoint. Continue rate control with metoprolol and diuresis with Lasix. Job#: [id number] SD
[2018-03-18] MEDS: CEFTRIAXONE SOD 1 GM VIAL IV SCH (12:59)
[2018-03-18] MEDS: AZITHROMYCIN 250MG/NS 100 ML 100 ML IV SCH (12:59)
[2018-03-18 14:03] LABS: BASOPHILS # (AUTO) 0.1 (0.0-0.1); BASOPHILS % 0.8 % (0.0-1.0); EOSINOPHILS # (AUTO) 0.2 (0.0-0.4); EOSINOPHILS % 3.7 % (0.0-6.0); HEMATOCRIT 37.3 % (38.2-49.6); HEMOGLOBIN 10.1 g/dL (14.0-18.0); LYMPHOCYTES # (AUTO) 0.9 (1.0-3.2); LYMPHOCYTES % 14.3 % (18.0-39.1); MEAN CORPUSCULAR HGB CONC 27.1 g/dL (31-35); MEAN CORPUSCULAR VOLUME 70.2 fL (81-99); MONOCYTES # (AUTO) 0.5 (0.2-0.8); MONOCYTES % 8.4 % (4.4-11.3); NEUTROPHILS # (AUTO) 4.5 (2.1-6.9); NEUTROPHILS % 72.3 % (38.7-80.0); PLATELET COUNT 178 x10e3/uL (140-360); RED BLOOD COUNT 5.31 x10e6/uL (4.3-5.7); RED CELL DISTRIBUTION WIDTH 28.8 % (11.7-14.4)
--- NOTE | 2018-03-18 15:34 | Diagnostic Imaging Report ---
Date and Time: 03/18/2018 Procedure: CT-guided biopsy of left pleural lesion reducing system operator: Dr. Osuna Pre-operative diagnosis: Peripherally calcified left pleural lesion Post-operative diagnosis: Peripherally calcified left pleural lesion Conscious Sedation: Fentanyl 25 mcg. The patient's heart rate and pulse oximetry were continuously monitored by the interventional radiology nurse. Blood pressure was monitored at 5 minute intervals. Total intraservice time for sedation: 20 minutes Additional Medications: Lidocaine 1% for local anesthesia Fluoroscopy time: 0 Dose-area Product: 0 mGycm2. Frontal Air Kerma: 0 Contrast used: 0 Estimated blood loss: Minimal Specimens: Fine-needle aspirations x2, core biopsy specimens x6 Implants: None Blood products administered: None Condition at completion: Stable Disposition: Returned to floor DISCUSSION: Informed consent was obtained and documented in the medical record after discussion of risks and benefits. The patient was placed in the prone position on the CT couch. A marker grid was placed over the left lower back. Limited CT scan was performed and a suitable percutaneous approach to the left pleural lesion was identified. The overlying skin was prepped and draped in the standard sterile fashion and 1% lidocaine was infiltrated into the skin and subcutaneous tissues. Then under intermittent CT guidance a 16-gauge needle guide was advanced to the central portion of the mass, with care taken to select a trajectory avoiding traversal of aerated lung. 2 fine-needle aspiration specimens were obtained using 20-gauge needles, with scant material returned. Therefore, the decision was made to proceed with core biopsy. A total of 6 core biopsy specimens were obtained using an 18-gauge, 2 cm throw core biopsy apparatus. A single specimen was submitted as a touch prep for microscopic analysis. The remainder of the core biopsy specimens were placed in formalin. At the conclusion of sampling the needle guide was removed and a sterile dressing was applied. The patient tolerated the procedure well without immediate complication. FINDINGS: Peripherally calcified large left pleural based lesion as previously discussed. IMPRESSION: Successful CT-guided fine-needle aspiration and core biopsies of a peripherally calcified left pleural lesion without immediate complication. Signed by: Dr. Dom Osuna M.D. on 03/18/2018 3:30 PM
== END 2018-03-18 20:21 | disposition home or self-care (01) | DRG 291 ==
LOC: MED/SURG3 16:32
PROC: 30233N1 Transfusion of Nonautologous Red Blood Cells into Peripheral Vein, Percutaneous Approach (ICD-10-PCS; 2018-03-11)
PROC: 0DJ08ZZ Inspection of Upper Intestinal Tract, Via Natural or Artificial Opening Endoscopic (ICD-10-PCS; 2018-03-16)
PROC: 0D568ZZ Destruction of Stomach, Via Natural or Artificial Opening Endoscopic (ICD-10-PCS; 2018-03-16)
PROC: 3E0G8GC Introduction of Other Therapeutic Substance into Upper GI, Via Natural or Artificial Opening Endoscopic (ICD-10-PCS; principal; 2018-03-16 11:27)
PROC: 0BJQ3ZZ Inspection of Pleura, Percutaneous Approach (ICD-10-PCS; 2018-03-17)
PROC: 0BBP3ZX Excision of Left Pleura, Percutaneous Approach, Diagnostic (ICD-10-PCS; 2018-03-18)
DX: I13.0 Hypertensive heart and chronic kidney disease with heart failure and stage 1 through stage 4 chronic kidney disease, or unspecified chronic kidney disease (principal); I50.33 Acute on chronic diastolic (congestive) heart failure; K31.811 Angiodysplasia of stomach and duodenum with bleeding; J18.9 Pneumonia, unspecified organism; J91.8 Pleural effusion in other conditions classified elsewhere; N18.3 Chronic kidney disease, stage 3 (moderate); D38.2 Neoplasm of uncertain behavior of pleura; Z79.01 Long term (current) use of anticoagulants; Z87.891 Personal history of nicotine dependence; K44.9 Diaphragmatic hernia without obstruction or gangrene; D50.9 Iron deficiency anemia, unspecified; I48.2 Chronic atrial fibrillation; R91.8 Other nonspecific abnormal finding of lung field; I25.10 Atherosclerotic heart disease of native coronary artery without angina pectoris; Z87.442 Personal history of urinary calculi
CPT/HCPCS: 10022; 32405; 32555; 36415; 43255; 71045; 71046; 71250; 74470; 76604; 77012; 80048; 80053; 81001; 82270; 82550; 82553; 82607; 82728; 82746; 82948; 83540; 83735; 84439; 84443; 84466; 84484; 85025; 85045; 85610; 85730; 86850; 86900; 86920; 88172; 88305; 88312; 88313; 93306; 96360; 99152; J0171; J0696; J1756; J1940; J2001; J2250; J7050; P9016